=== PATIENT | male | born 1965 ===

== ENCOUNTER 2024-03-14 16:18 | Emergency (ER) | payer OTHER ==
[~2024-03-14] VITALS: Ht 165.1 cm; Wt 56.0 kg
[2024-03-14 17:07] VITALS: BP 124/80
[2024-03-14] MEDS ORDERED: LIDOcaine HCl 1% (Local Anesth.) 20 ML VIAL STI STA (17:11)
[2024-03-14] MEDS ORDERED: LIDOcaine HCl 1% (Local Anesth.) 20 ML VIAL IM STA (17:11)
[2024-03-14] MEDS ORDERED: cefTRIAXone SODIUM 1 GM/VIAL SDV IM ONE (17:15)
[2024-03-14] MEDS ORDERED: POVIDONE IODINE 0.5 OZ/BTL TOP ONE (17:15)
[2024-03-14] MEDS ORDERED: Diph, Acellular Pertussis, Tet 0.5 ML/VIAL (Tdap) SDV IM ONE (17:15)
[2024-03-14 17:16] VITALS: BP 131/75
[2024-03-14] MEDS ORDERED: CEPHALEXIN500 M1 PO (18:04)
[2024-03-14] MEDS ORDERED: NAPROXEN500 MG PO (18:04)
[2024-03-14 18:10] VITALS: BP 123/72
[2024-03-14 18:20] VITALS: BP 131/75
== END 2024-03-14 18:28 | disposition home or self-care (01) | DRG 605 ==
LOC: ED 16:18
PROC: 0HQGXZZ Repair Left Hand Skin, External Approach (ICD-10-PCS; principal; 2024-03-14)
DX: S61.211A Laceration without foreign body of left index finger without damage to nail, initial encounter (principal); W29.3XXA Contact with powered garden and outdoor hand tools and machinery, initial encounter; Y93.H9 Activity, other involving exterior property and land maintenance, building and construction; Y99.0 Civilian activity done for income or pay

== ENCOUNTER 2024-03-22 09:35 | Emergency (ER) | payer SELFPAY ==
[~2024-03-22] VITALS: Ht 165.1 cm; Wt 57.0 kg
[~2024-03-22 09:35] MED LIST: CEPHALEXIN500 M1 PO; NAPROXEN500 MG PO
[2024-03-22 09:45] VITALS: BP 114/69
[2024-03-22] MEDS ORDERED: CEPHALEXIN500 M1 PO (09:53)
[2024-03-22 10:00] VITALS: BP 102/68
[2024-03-22 10:04] VITALS: BP 102/68
== END 2024-03-22 10:09 | disposition home or self-care (01) | DRG 950 ==
LOC: ED 09:35
DX: S61.211D Laceration without foreign body of left index finger without damage to nail, subsequent encounter (principal); X58.XXXD Exposure to other specified factors, subsequent encounter